=== PATIENT | male | born 1970 | race Caucasian/White ===

== ENCOUNTER 2022-08-29 11:35 | Day surgery (SDC) | payer OTHER ==
[~2022-08-29] VITALS: Ht 172.7 cm; Wt 99.8 kg
[2022-08-29] MEDS ORDERED: fentaNYL citrate 0.05 MG/ML VIAL ONE (13:50)
[2022-08-29] MEDS ORDERED: LIDOCAINE 2% 100 MG/5 ML UJET TP ONE (13:50)
[2022-08-29] MEDS ORDERED: fentaNYL citrate 0.05 MG/ML VIAL IVP ONE (16:10)
== END 2022-08-29 14:55 | disposition home or self-care (01) ==
LOC: MMU 11:35 → MDS 11:35
PROVIDERS: ATTEND Internal Medicine Gastroenterology
DX: K62.5 Hemorrhage of anus and rectum (principal); K57.30 Diverticulosis of large intestine without perforation or abscess without bleeding; K59.00 Constipation, unspecified; Z80.0 Family history of malignant neoplasm of digestive organs; Z20.822 Contact with and (suspected) exposure to COVID-19
CPT/HCPCS: 45378; 82948; 87426; J3010